=== PATIENT | male | born 1965 | race Caucasian/White ===

== ENCOUNTER 2016-10-08 07:32 | Day surgery (SDC) ==
[2016-10-08] MEDS ORDERED: LR 1,000 ML ONE (08:06)
[2016-10-08] MEDS ORDERED: KEFZOL 2 GM/D5W 50 ML ONE (08:07)
--- NOTE | 2016-10-08 08:12 | EKG Report ---
Test Performed on : 10/08/2016 07:52:56 AM Test Reason : per orders of anesthesia Blood Pressure : / mmHG Vent. Rate : 064 BPM Atrial Rate : 064 BPM P-R Int : 180 ms QRS Dur : 108 ms QT Int : 408 ms P-R-T Axes : 057 000 032 degrees QTc Int : 420 ms Normal sinus rhythm. with sinus arrhythmia. Normal ECG No previous ECGs available Confirmed by Tr Ruiz MD ([id number]) on 10/09/2016 9:38:25 PM
[2016-10-08 08:14] LABS: HEMATOCRIT 43.7 % (42.0-52.0); HEMOGLOBIN 14.9 g/dL (14.0-18.0); MCHC 34.1 g/dL (33-37); MCV 88.1 FL (81-99); MPV 9.3 FL (7.4-10.4); RBC 4.96 XMIL (4.7-6.1)
[2016-10-08 08:27] LABS: AGAP 13; BUN 16 mg/dL (8-22); CALCIUM 9.2 mg/dL (8.8-10.2); CHLORIDE 99 mmol/L (98-107); COSMO 275; SODIUM 137 mmol/L (136-145); TCO2 25 mmol/L (25-35)
[2016-10-08] MEDS ORDERED: XYLOCAINE 1% ONE (09:19)
[2016-10-08] MEDS ORDERED: MARCAINE 0.25% PF/EPI 1:200,000 ONE (09:19)
[2016-10-08] MEDS: MORPHINE ONE ×4 (11:44→12:03)
[2016-10-08] MEDS ORDERED: ZOFRAN IV PRN (12:29)
[2016-10-08] MEDS ORDERED: NORCO-7.5 PO PRN (12:29)
[2016-10-08 13:07] VITALS: BP 98/61
--- NOTE | 2016-10-08 14:50 | OPERATIVE NOTE ---
PROCEDURE DATE: 10/08/2016 PREOPERATIVE DIAGNOSIS: Incarcerated umbilical hernia. POSTOPERATIVE DIAGNOSIS: Incarcerated umbilical hernia. PROCEDURE PERFORMED: Open repair of umbilical hernia defect of 5 cm with 9 cm circular composite mesh. SURGEON: Bubba Cintron MD ESTIMATED BLOOD LOSS: 10 mL. SPECIMENS: Hernia contents. COMPLICATIONS: None. ANESTHESIA: General. OPERATIVE INDICATION: This is a 50-year-old male with a symptomatic, now a partially incarcerated umbilical hernia with significant thinning of the skin overlying the hernia. He is obese and repair is indicated given the thinning of the skin and incarcerated symptomatic nature of the hernia. OPERATIVE FINDINGS: There was a 5 cm umbilical hernia defect containing only fat that was at least partially incarcerated. The preperitoneal plane was able to be developed without violation the peritoneum and placement of a underlay mesh in the preperitoneal space. OPERATIVE NOTE: Risks, benefits, alternatives discussed with patient. He consented to the procedure. He was seen in the preoperative area and surgery to be performed was confirmed. He was taken to the operating room and placed in supine position. General anesthesia was induced without complication. Preincisional antibiotics were administered. His hair was removed with clippers. The abdomen was prepped with chlorhexidine solution, draped in usual fashion using Ioban drapes. After a time-out was performed between nursing, surgical, anesthesia staff periumbilical block was performed with a combination of lidocaine and Marcaine solution. The skin overlying the hernia was everted with hemostatic clamps and incision along the midline was made dissecting out the hernia contents down to the level of the fascia. It was freed up and the preperitoneal plane was entered and this was reduced in the abdomen. We then widely freed up the fascia in all directions back to healthy, this did require some debridement of the fascia medially. After measuring the hernia size defect, we elected to perform a preperitoneal underlay mesh repair and selected a composite mesh. Using 2-0 PDS sutures, we tacked the mesh in underlay fashion with approximately 3 cm of overlap in every direction. With horizontal mattress sutures. This provided good coverage of the defect with good overlap of at least 2-3 cm in all directions. After satisfactory obliterating all the gas and the mesh, we then closed the fascia with interrupted 2-0 PDS sutures along the midline. We irrigated the superficial wound and noted hemostasis. We also confirmed hemostasis prior to closing the fascia. Then using 3-0 Vicryl sutures, we tacked down the umbilical stalk. The skin was quite thin here, but it was viable and well perfused. We then obliterated the space while closing the deep dermis. The incision was closed with a relatively loosely to facilitate any drainage of the seroma should it happen to occur, but then the skin was closed with 4-0 Monocryl sutures as well in interrupted fashion. A gauze Tegaderm pressure dressing was applied. At the conclusion of the case an abdominal binder was also applied. He tolerated procedure well, there was no identified complication. All sponge, instrument, and needle counts were correct x2. I talked to the family.
[2016-10-08] MEDS ORDERED: FENTANYL ONE (16:56)
[2016-10-08] MEDS ORDERED: DIPRIVAN 1% ONE (16:56)
[2016-10-09] MEDS ORDERED: EPHEDRINE ONE (09:53)
[2016-10-09] MEDS ORDERED: NEOSTIGMINE ONE (09:53)
[2016-10-09] MEDS ORDERED: SODIUM CHLORIDE 0.9% 10 ML ONE (09:53)
[2016-10-09] MEDS ORDERED: ZOFRAN ONE (09:53)
[2016-10-09] MEDS ORDERED: QUELICIN (DOSE) ONE (09:54)
[2016-10-09] MEDS ORDERED: XYLOCAINE-MPF 2% ONE (09:54)
[2016-10-09] MEDS ORDERED: ZEMURON ONE (09:54)
[2016-10-09] MEDS ORDERED: LR 1,000 ML ONE (09:54)
[2016-10-09] MEDS ORDERED: ROBINUL ONE (09:54)
== END 2016-10-08 13:20 | disposition home or self-care (01) ==
LOC: OPS 07:32
PROVIDERS: ATTEND Surgery
DX: K42.0 Umbilical hernia with obstruction, without gangrene (principal)
CPT/HCPCS: 80048; 85027; 88302; 93005; 93010; J0330; J0690; J2270; J2405; J3010; J7120; J2710; S0020